=== PATIENT | female | born 1935 | race Caucasian/White ===

== ENCOUNTER → 2017-12-31 07:31 | Outpatient (CLI) | payer MEDICARE, SELFPAY ==
--- NOTE | 2017-12-31 07:33 | DI.MRI.S_ITS ---
PROCEDURE: MR HEAD/BRAIN WO CON INDICATIONS: Memory loss TECHNIQUE: Non-contrast axial T1 spin echo, axial T2 fast spin echo, sagittal and axial FLAIR, coronal T2 fast spin echo, axial gradient echo, axial diffusion and ADC through the brain. COMPARISON: [facility], MR, BRAIN WITHOUT CONTRAST, 05/07/2011, 16:27. FINDINGS: Image quality: Excellent. CSF spaces: Ventricles appear symmetric in size and shape. Basal cisterns are patent. No extra-axial fluid collections. Brain: No intracranial bleeds or mass effects. There is cerebral volume loss for age. There are periventricular and deep white matter chronic small vessel ischemic changes. Brainstem appears normal. Diffusion-weighted images show no acute ischemic insults. No chronic ischemic insults. Normal intravascular flow voids are present. Incidental note is made of relatively prominent, symmetric perivascular spaces within the basal ganglia. Skull and face: Calvarial bone marrow is normal in signal. Orbits are normal. Note is made of bilateral lens replacements. Sinuses: Sinuses and mastoids are clear. IMPRESSION: Study within normal limits for age, with brain parenchymal volume loss and chronic small vessel ischemic change. Dictated by: Jose G Elizabeth M.D. on 12/31/2017 at 9:16 Approved by: Jose G Elizabeth M.D. on 12/31/2017 at 9:18
== END ==
PROVIDERS: Family Provider Family Medicine; PCP Family Medicine; Visit Provider Family Medicine
DX: R41.3 Other amnesia (principal)
CPT/HCPCS: 70551

== ENCOUNTER → 2018-01-01 08:04 | Outpatient (CLI) | payer MEDICARE, SELFPAY ==
[2018-01-01 08:45] LABS: Add Manual Diff / Slide Review NO; Basophils Percent Auto 0.5 % (0-2); Eosinophils Percent Auto 3.4 % (2-4); Hematocrit 38.9 % (36-46); Hemoglobin 13.3 g/dL (12.0-16.0); Lymphocytes Percent Auto 28.6 % (25-40); Mean Corpuscular HGB Conc 34.3 % (30-36); Mean Corpuscular Hemoglobin 31.5 PG (26-34); Mean Corpuscular Volume 91.9 fL (80-100); Neutrophils Absolute Auto 3400 /uL (3000-5900); Neutrophils Percent Auto 58.5 % (50-75); Platelet Count 218 X10^3/uL (150-400); Red Blood Cell Count 4.23 X10^6/uL (4.0-5.2); Red Cell Distribution Width 12.9 % (11.6-14.8); White Blood Cell Count 5.7 X10^3/uL (4.5-11.0)
[2018-01-01 09:17] LABS: Alanine Aminotransferase 28 IU/L (9-52); Albumin 4.3 g/dL (3.5-5.0); Albumin Globulin Ratio 1.3 (1.0-2.8); Alkaline Phosphatase 64 U/L (38-126); Aspartate Aminotransferase 26 IU/L (14-36); Bilirubin Total 0.5 mg/dL (0.2-1.3); Blood Urea Nitrogen 29 mg/dL (7-17); Calcium 9.5 mg/dL (8.4-10.2); Carbon Dioxide 30 mmol/L (22-32); Chloride 100 mmol/L (98-107); Estimated Glomerular Filt Rate 53.2 mL/min (>60); Globulin 3.2 g/dL (1.7-4.1); Glucose 106 mg/dL (80-110); HEMOLYSIS < 15 (0-50); Sodium 141 mmol/L (137-145); Total Protein 7.5 g/dL (6.3-8.2)
[2018-01-01 09:36] LABS: TSH w/ Reflex to FT4 2.68 uIU/mL (0.47-4.68)
[2018-01-01 10:14] LABS: Folate 17.7 ng/mL (2.76-20.0); Vitamin B12 438 pg/mL (239-931)
[2018-01-06 16:00] LABS: Rapid Plasma Reagin NON REACTIVE
== END ==
PROVIDERS: Family Provider Family Medicine; PCP Family Medicine; Visit Provider Family Medicine
DX: R41.81 Age-related cognitive decline (principal)
CPT/HCPCS: 36415; 80053; 82607; 82746; 84443; 85025; 86592

== ENCOUNTER → 2018-11-14 14:53 | Outpatient (CLI) | payer MEDICARE, SELFPAY ==
--- NOTE | 2018-11-14 | DI.MG.S_ITS ---
BILATERAL DIGITAL SCREENING MAMMOGRAM 3D/2D WITH CAD: 11/14/2018 CLINICAL: Routine screening. Comparison is made to exams dated: 09/06/2017 mammogram, 08/21/2016 mammogram, and 08/15/2015 mammogram - [facility]. The tissue of both breasts is predominantly fatty. Current study was also evaluated with a Computer Aided Detection (CAD) system. No significant masses, calcifications, or other findings are seen in either breast. There has been no significant interval change. IMPRESSION: NEGATIVE There is no mammographic evidence of malignancy. A 1 year screening mammogram is recommended. This exam was interpreted at Station ID: [id number]. NOTE: For mammograms, a report in lay terms will be sent to the patient. Approximately 15% of breast malignancies will not be visualized mammographically. In the management of a palpable breast mass, a negative mammogram must not discourage biopsy of a clinically suspicious lesion. Electronically Signed By: Carline sainz/abdulkadir:11/14/2018 16:38:06 letter sent: Normal Exam ACR BI-RADS Category 1: Negative [id number]
== END ==
PROVIDERS: Family Provider Family Medicine; PCP Family Medicine; Visit Provider Family Medicine
DX: Z12.31 Encounter for screening mammogram for malignant neoplasm of breast (principal)
CPT/HCPCS: 77063; 77067

== ENCOUNTER 2020-05-24 12:26 | Emergency (ER) | payer MEDICARE, SELFPAY ==
[2020-05-24 12:34] VITALS: BP 187/91; PULSE 105; RESP 16; TEMP 36.9; O2SAT 98; BMI 21.2
--- NOTE | 2020-05-24 12:36 | ED.HEATRA ---
HPI - Head Injury General Chief complaint: Trauma Stated complaint: HIT HEAD IN THE SHOWER Time Seen by Provider: 05/24/20 12:27 Source: patient and family Mode of arrival: Ambulatory Limitations: no limitations History of Present Illness HPI Narrative: 85-year-old female nonsmoker with noncontributory medical history presents with a family member and a chief complaint of an accidental fall in the shower just prior to arrival. She was reaching into the shower and slipped and hit her head on 1 of the upper right supports to provide stability of the shower. She did not fall and actually hit the ground. She does not take blood thinners, does not drink alcohol. She had no loss of consciousness and has full recall of the event. She is acting at her neurologic baseline per family friend and other family members in the waiting room. She denies nausea or vomiting MD Complaint: head injury Onset (ago): minute(s) Mechanism of Injury: fall Place: home Loss of Consciousness: no Location of injury: occipital Severity: mild Quality: burning Radiation: none Other Injuries: none Associated symptoms: denies other symptoms Related Data Home Medications Medication Instructions Recorded Confirmed ASCORBIC ACID (VITAMIN C) 500 mg PO QDAY #0 09/10/12 05/21/18 CA PANTOTHENATE/FOLIC ACID/VIT 1 tab PO QDAY #0 09/10/12 05/21/18 (MULTIVITAMIN) VITAMIN D (Vitamin D3) 1,000 unit PO QDAY #0 09/10/12 05/21/18 aspirin 325 mg PO QDAY #0 09/10/12 05/21/18 Previous Rx's Medication Instructions Recorded lisinopril 20 1 tab PO BID #180 tab 01/11/20 mg-hydrochlorothiazide 12.5 mg tablet Allergies Allergy/AdvReac Type Severity Reaction Status Date / Time acetaminophen [From ULTRACET] Allergy Mild vomiting Verified 05/21/18 13:29 Estrogens [ESTROGENS] Allergy Mild MIGRAINES Verified 05/21/18 13:29 nilson [NILSON] Allergy Mild rash Verified 05/21/18 13:29 celecoxib [CELECOXIB] Allergy Unknown Verified 05/21/18 13:29 cephalexin [CEPHALEXIN] Allergy Unknown unk Verified 05/21/18 13:29 codeine [CODEINE] Allergy Unknown Verified 05/21/18 13:29 doxycycline [DOXYCYCLINE] Allergy Unknown Verified 05/21/18 13:29 estradiol [ESTRADIOL] Allergy Unknown Verified 05/21/18 13:29 estrone [ESTRONE] Allergy Unknown Verified 05/21/18 13:29 ibuprofen [IBUPROFEN] Allergy Unknown Verified 05/21/18 13:29 oxycodone [OXYCODONE] Allergy Unknown Verified 05/21/18 13:29 propoxyphene [PROPOXYPHENE] Allergy Unknown Verified 05/21/18 13:29 sulfacetamide Allergy Unknown Verified 05/21/18 13:29 [From SULFAMIDE] sulfamethoxazole Allergy Unknown Verified 05/21/18 13:29 [SULFAMETHOXAZOLE] Tetracyclic Antidepressants Allergy Unknown Verified 05/21/18 13:29 [TETRACYCLIC ANTIDEPRESSANTS] Tetracyclines [TETRACYCLINES] Allergy Unknown Verified 05/21/18 13:29 tramadol [TRAMADOL] Allergy Unknown Verified 05/21/18 13:29 trimethoprim [TRIMETHOPRIM] Allergy Unknown Verified 05/21/18 13:29 aspercream Allergy Mild rash Uncoded 05/21/18 13:29 hibiscus Allergy Mild rash Uncoded 05/21/18 13:29 novocaine Allergy Mild nause Uncoded 05/21/18 13:29 CASHEWS Allergy Unknown Uncoded 05/21/18 13:29 Review of Systems Constitutional Constitutional: Denies chills, Denies fatigue, Denies fever(s), Denies frequent falls, Denies lethargy and Denies weakness Eyes Eyes: Denies change in vision, Denies eye discharge, Denies irritation and Denies loss of vision ENT Ears, Nose, Mouth, and Throat: Denies change in voice, Denies dizziness, Denies neck pain, Denies sore throat and Denies throat swelling Cardiovascular Cardiovascular: Denies chest pain, Denies irregular heart rhythm, Denies lightheadedness, Denies palpitations, Denies dyspnea, Denies dyspnea on exertion and Denies orthopnea Respiratory Respiratory: Denies cough, Denies dyspnea, Denies dyspnea on exertion and Denies wheezing Gastrointestinal Gastrointestinal: Denies abdominal pain, Denies change in bowel habits, Denies diarrhea, Denies nausea and Denies vomiting Musculoskeletal Musculoskeletal: Denies neck pain and Denies numbness Integumentary/Breasts Skin/Breast: Denies pruritus, Denies erythema, Denies rash, Reports unusual bruising and Denies wounds Neurologic Neurologic: Denies behavioral changes, Denies confusion, Denies dizziness, Denies frequent falls, Denies loss of vision, Denies numbness and Denies weakness Psychiatric Psychiatric: Denies anxiety, Denies behavioral changes, Denies confusion, Denies depression, Denies homicidal ideation and Denies suicidal ideation Endocrine Endocrine: Denies fatigue, Denies flushing and Denies palpitations Hematologic/Lymphatic Hematologic/Lymphatic: Denies easy bruising Allergic/Immunologic Allergic/Immunologic: Denies urticaria, Denies throat swelling and Denies wheezing Patient History Medical History Hypertension (Chronic 06/30/14) Surgical History History of hip replacement (10/12/03) Status post hysterectomy Social History marital status: Smoking Status: Never smoker alcohol intake: current (1-3 A WEEK ) substance use type: does not use Smoking Status: Never smoker Exam Narrative Exam Narrative: GENERAL: [85] year old patient appears stated age. Well-nourished, well-developed patient, in mild distress. GCS 15 HEAD: Hematoma on occiputs, no evidence of depressed skull fracture. Normocephalic. EYES: Pupils equal round and reactive. Extraocular motions intact. No scleral icterus. No injection or drainage. ENT: Nose without bleeding, purulent drainage. Throat without erythema, tonsillar hypertrophy or exudate. Airway patent. NECK: Trachea midline. Non tender CARDIOVASCULAR: Regular rate and rhythm without murmurs, gallops, or rubs. RESPIRATORY: Clear to auscultation. Breath sounds equal bilaterally. No wheezes, rales, or rhonchi. GASTROINTESTINAL: Abdomen soft, non-tender, nondistended. EXTREMITIES: No edema or joint tenderness. BACK: Nontender without deformity or crepitance. No flank tenderness. NEURO: AOx3. SKIN: No rash or erythema of visible areas Initial Vital Signs Initial Vital Signs: Vital Signs Temperature 98.5 F 05/24/20 12:34 Pulse Rate 105 H 05/24/20 12:34 Respiratory Rate 16 05/24/20 12:34 Blood Pressure 187/91 H 05/24/20 12:34 Pulse Oximetry 98 05/24/20 12:34 Course Orders Ordered: ED Orders 05/24/20 12:36 CT head/brain wo con Stat Vital Signs Vital signs: Vital Signs - 8 hr 05/24/20 12:34 Temperature 98.5 F Pulse Rate 105 H Respiratory Rate 16 Blood Pressure 187/91 H Pulse Oximetry 98 MDM - Head Injury Imaging Data CT scan - head: Radiologist's Impression: Vesta Dickinson 85 F [address] [address] [address] Scan Report Signed Patient: Vesta Dickinson EMR#: [id number] : [id number]:[id number] Age/Sex: 85 / FDate of Service: 05/24/20 Loc: ED Accession Number: [id number] Procedure: CT head/brain wo con Ordering Provider: Maxwell Celaya D.O. PROCEDURE: CT HEAD/BRAIN WO CON INDICATIONS: fall with head injury, occipital hematoma TECHNIQUE: Noncontrast 4.5 mm thick angled axial sections acquired from the foramen magnum to the vertex, with coronal and sagittal reformats. For radiation dose reduction, the following was used: automated exposure control, adjustment of mA and/or kV according to patient size. COMPARISON: [facility], MR, MR HEAD/BRAIN WO CON, 12/31/2017, 7:47. FINDINGS: Image quality: Excellent. CSF spaces: Basal cisterns are patent. No extra-axial fluid collections. Ventricles are normal in size and shape. Brain: No midline shift. No intracranial masses or hemorrhage. No area of hypodensity in a large vascular distribution to suggest acute infarction. Periventricular hypodensity consistent with chronic microvascular ischemic change. Distal intracranial ICA atherosclerotic calcifications. Age-related parenchymal loss. Skull and face: Small left parietal scalp hematoma. No underlying fracture. Sinuses: Mucosal thickening in the right sphenoid sinus. Paranasal sinuses and mastoids are otherwise clear. IMPRESSION: 1. No acute intracranial hemorrhage. 2. No acute infarct demonstrated. 3. Chronic microvascular ischemic disease and age-related parenchymal loss. 4. Small left parietal scalp hematoma. Dictated by: John Garza M.D. on 05/24/2020 at 12:53 Approved by: John Garza M.D. on 05/24/2020 at 12:57 Discharge Plan Departure Patient Disposition: Home Clinical Impression: Hematoma of scalp Qualifiers: Encounter type: initial encounter Qualified Code(s): S00.03XA - Contusion of scalp, initial encounter Discharge Date/Time: 05/24/20 13:10 Instructions: DI for Hematoma (Bruise) Activity Restrictions/Additional Instructions: *You have been diagnosed with [fall with scalp hematoma. ] *What to do: *Take medications as directed *Follow up with your primary care provider in 2-3 days, call for an appointment. Let them know you were seen in the Emergency Department and that we ask that you be seen in follow up *Return to ER if you should have any new, worsening or concerning symptoms, such as [ vomiting, feeling unsteady, numbness, tingling or weakness of your extremities or other bothersome symptoms] Prescriptions: No Action ASCORBIC ACID (VITAMIN C) 500 mg PO QDAY Qty: 0 RF: 0 VITAMIN D (Vitamin D3) 1,000 unit PO QDAY Qty: 0 RF: 0 aspirin 325 MG tablet 325 mg PO QDAY Qty: 0 RF: 0 CA PANTOTHENATE/FOLIC ACID/VIT (MULTIVITAMIN) 1 tab PO QDAY Qty: 0 RF: 0 lisinopril-hydrochlorothiazide 20-12.5 mg tablet 1 tab PO BID Qty: 180 RF: 0 Referrals: Bello Núñez MD [Primary Care Provider] -
== END 2020-05-24 13:10 | disposition home or self-care (01) ==
PROVIDERS: Emergency Provider Emergency Medicine; Family Provider Family Medicine; PCP Family Medicine
DX: S00.03XA Contusion of scalp, initial encounter (principal); W18.2XXA Fall in (into) shower or empty bathtub, initial encounter
CPT/HCPCS: 70450; 99284

== ENCOUNTER → 2020-11-24 14:19 | Outpatient (CLI) | payer MEDICARE, SELFPAY ==
[2020-11-24 16:46] LABS: Add Manual Diff / Slide Review NO; Basophils Absolute Auto 0 /uL (0-100); Basophils Percent Auto 0.6 % (0-2); Eosinophils Absolute Auto 200 /uL (0-450); Hematocrit 43.3 % (36-46); Hemoglobin 14.4 g/dL (12.0-16.0); Lymphocytes Absolute Auto 1800 /uL (1100-4500); Lymphocytes Percent Auto 23.8 % (25-40); Mean Corpuscular HGB Conc 33.4 % (30-36); Mean Corpuscular Volume 92.9 fL (80-100); Monocytes Absolute Auto 600 /uL (0-900); Monocytes Percent Auto 7.9 % (3-14); Neutrophils Absolute Auto 5000 /uL (1500-7000); Neutrophils Percent Auto 64.7 % (50-75); Platelet Count 251 X10^3/uL (150-400); Red Blood Cell Count 4.66 X10^6/uL (4.0-5.2); Red Cell Distribution Width 13.6 % (11.6-14.8); White Blood Cell Count 7.7 X10^3/uL (4.5-11.0)
[2020-11-24 16:53] LABS: Alanine Aminotransferase 25 IU/L (<35); Albumin 4.5 g/dL (3.5-5.0); Albumin Globulin Ratio 1.3 (1.0-2.8); Alkaline Phosphatase 72 U/L (38-126); Aspartate Aminotransferase 29 IU/L (14-36); BUN Creatinine Ratio 31.8 (6-22); Bilirubin Total 0.4 mg/dL (0.2-1.3); Blood Urea Nitrogen 34 mg/dL (7-17); Calcium 10.1 mg/dL (8.4-10.2); Carbon Dioxide 27 mmol/L (22-32); Chloride 101 mmol/L (98-107); Estimated Glomerular Filt Rate 48.9 mL/min (>60); Globulin 3.4 g/dL (1.7-4.1); Glucose 125 mg/dL (80-110); HEMOLYSIS < 15 (0-50); Potassium 3.9 mmol/L (3.4-5.1); Sodium 138 mmol/L (137-145); Total Protein 7.9 g/dL (6.3-8.2)
[2020-11-24 18:19] LABS: TSH w/ Reflex to FT4 2.18 uIU/mL (0.47-4.68)
[2020-11-24 18:31] LABS: Vitamin B12 989 pg/mL (239-931)
== END ==
PROVIDERS: Family Provider Family Medicine; PCP Family Medicine; Referring Provider Family Medicine; Visit Provider Family Medicine
DX: I10 Essential (primary) hypertension (principal); R41.81 Age-related cognitive decline
CPT/HCPCS: 36415; 80053; 82607; 84443; 85025

== ENCOUNTER → 2022-12-10 07:20 | Outpatient (CLI) | payer MEDICARE, SELFPAY ==
[2022-12-10 08:49] LABS: Hematocrit 38.4 % (36-46); Hemoglobin 13.1 g/dL (12.0-16.0); Mean Corpuscular HGB Conc 34.2 % (30-36); Mean Corpuscular Hemoglobin 31.7 PG (26-34); Mean Corpuscular Volume 92.8 fL (80-100); Platelet Count 206 X10^3/uL (150-400); Red Blood Cell Count 4.14 X10^6/uL (4.0-5.2); Red Cell Distribution Width 12.9 % (11.6-14.8); White Blood Cell Count 7.1 X10^3/uL (4.5-11.0)
[2022-12-10 08:59] LABS: Alanine Aminotransferase 24 IU/L (<35); Albumin 4.3 g/dL (3.5-5.0); Albumin Globulin Ratio 1.4 (1.0-2.8); Alkaline Phosphatase 85 U/L (38-126); Aspartate Aminotransferase 28 IU/L (14-36); BUN Creatinine Ratio 34.5 (6-22); Bilirubin Total 0.3 mg/dL (0.2-1.3); Blood Urea Nitrogen 38 mg/dL (7-17); Calcium 9.3 mg/dL (8.4-10.2); Carbon Dioxide 26 mmol/L (22-32); Chloride 104 mmol/L (98-107); Cholesterol 229 mg/dL (140-199); Estimated Glomerular Filt Rate 49 mL/min (>60); Globulin 3.1 g/dL (1.7-4.1); Glucose 114 mg/dL (80-110); HDL Cholesterol 62 mg/dL (40-60); HEMOLYSIS < 15 (0-50); LDL Cholesterol Calculated 146 mg/dL (<100); Potassium 3.9 mmol/L (3.4-5.1); Sodium 139 mmol/L (137-145); Total Protein 7.4 g/dL (6.3-8.2); Triglycerides 105 mg/dL (35-150)
[2022-12-10 09:45] LABS: Vitamin B12 > 1000 pg/mL (239-931)
[2022-12-10 09:48] LABS: TSH w/ Reflex to FT4 3.51 uIU/mL (0.47-4.68)
== END ==
PROVIDERS: Family Provider Family Medicine; PCP Internal Medicine; Referring Provider Internal Medicine; Visit Provider Internal Medicine
DX: E53.8 Deficiency of other specified B group vitamins (principal); I10 Essential (primary) hypertension; G30.9 Alzheimer's disease, unspecified; F02.80 Dementia in other diseases classified elsewhere, unspecified severity, without behavioral disturbance, psychotic disturbance, mood disturbance, and anxiety
CPT/HCPCS: 36415; 80053; 80061; 82607; 84443; 85027

== ENCOUNTER → 2023-07-12 18:45 | Outpatient (CLI) | payer MEDICARE, SELFPAY | PROVIDERS: Family Provider Family Medicine; PCP Internal Medicine; Visit Provider Physician Assistant | DX: R31.9 Hematuria, unspecified (principal) | CPT/HCPCS: 87077; 87086; 87186 ==

== ENCOUNTER → 2023-07-16 13:10 | Outpatient (CLI) | payer MEDICARE, SELFPAY | PROVIDERS: Family Provider Family Medicine; PCP Internal Medicine; Visit Provider Physician Assistant | DX: R30.0 Dysuria (principal) | CPT/HCPCS: 87086 ==

== ENCOUNTER → 2023-07-16 13:11 | Outpatient (CLI) | payer MEDICARE, SELFPAY ==
[2023-07-16 14:19] LABS: Add Manual Diff / Slide Review NO; Basophils Absolute Auto 0 /uL (0-100); Basophils Percent Auto 0.3 % (0-2); Eosinophils Absolute Auto 100 /uL (0-450); Eosinophils Percent Auto 1.3 % (2-4); Hematocrit 40.7 % (36-46); Hemoglobin 13.8 g/dL (12.0-16.0); Lymphocytes Absolute Auto 1900 /uL (1100-4500); Mean Corpuscular HGB Conc 33.9 % (30-36); Mean Corpuscular Hemoglobin 31.1 PG (26-34); Mean Corpuscular Volume 91.7 fL (80-100); Monocytes Absolute Auto 600 /uL (0-900); Monocytes Percent Auto 7.5 % (3-14); Neutrophils Absolute Auto 6000 /uL (1500-7000); Neutrophils Percent Auto 68.9 % (50-75); Platelet Count 268 X10^3/uL (150-400); Red Blood Cell Count 4.43 X10^6/uL (4.0-5.2); White Blood Cell Count 8.7 X10^3/uL (4.5-11.0)
[2023-07-16 14:34] LABS: Alanine Aminotransferase 21 IU/L (<35); Albumin 4.5 g/dL (3.5-5.0); Albumin Globulin Ratio 1.3 (1.0-2.8); Alkaline Phosphatase 71 U/L (38-126); Aspartate Aminotransferase 26 IU/L (14-36); BUN Creatinine Ratio 26.6 (6-22); Bilirubin Total 0.7 mg/dL (0.2-1.3); Blood Urea Nitrogen 37 mg/dL (7-17); Calcium 11.7 mg/dL (8.4-10.2); Carbon Dioxide 27 mmol/L (22-32); Chloride 98 mmol/L (98-107); Estimated Glomerular Filt Rate 37 mL/min (>60); Globulin 3.6 g/dL (1.7-4.1); Glucose 93 mg/dL (80-110); HEMOLYSIS < 15 (0-50); Potassium 4.3 mmol/L (3.4-5.1); Sodium 135 mmol/L (137-145); Total Protein 8.1 g/dL (6.3-8.2)
== END ==
PROVIDERS: Family Provider Family Medicine; PCP Internal Medicine; Referring Provider Physician Assistant; Visit Provider Physician Assistant
DX: N39.0 Urinary tract infection, site not specified (principal); R30.0 Dysuria
CPT/HCPCS: 36415; 80053; 85025; 87086

== ENCOUNTER 2023-07-30 18:47 | Emergency (ER) | payer MEDICARE, SELFPAY ==
[2023-07-30] VITALS (7 sets, daily range): BP systolic 130–171; BP diastolic 69–78; PULSE 74–94; RESP 13–23; TEMP 36.4; O2SAT 97–99; BMI 22.1
--- NOTE | 2023-07-30 19:16 | ED.WEAKNESS ---
HPI - Weakness General Chief complaint: Weakness Stated complaint: weakness, dizziness Time Seen by Provider: 07/30/23 19:00 Source: patient and family Mode of arrival: Ambulatory History of Present Illness HPI Narrative: This is an 88-year-old female with a history of hypertension and dementia who arrives by private vehicle accompanied by her daughter. Primary historian is the patient daughter contribute. Reportedly over the last week she has had progressive weakness. Today she feels fatigued weak and dizzy. She has not had nausea or vomiting no changes in bowel habits no urinary symptoms no shortness of breath no chest pain abdominal pain no fevers. A couple of weeks ago, she was treated with Macrobid and another antibiotic for urinary tract infection the initial urine culture from that event grew out pansensitive E coli, subsequent urine culture was no growth. Her primary care provider is Dr. Charles Miranda, she takes medications for dementia and hypertension and her medications have not changed recently. Related Data Home Medications Medication Instructions Recorded Confirmed antiarthritic combination no.2 900 mg PO DAILY 11/24/20 07/16/23 mg tablet (glucosamine-chondroitin) aspirin 325 mg tablet 325 mg PO ONCE PRN pain #0 tabs 11/24/20 07/16/23 calcium carbonate 500 mg calcium 500 mg PO DAILY 11/24/20 07/16/23 (1,250 mg) tablet (Calcium 500) calcium 1 tab PO DAILY 11/24/20 07/16/23 [id number] 250 mg-40 mg-125 unit tablet (Citracal-D3 Plus Magnesium) cyanocobalamin (vitamin B-12) 1,000 mcg PO DAILY 11/24/20 07/16/23 1,000 mcg capsule multivitamin 1 tab PO DAILY 11/24/20 07/16/23 ascorbate calcium (vitamin C) 500 500 mg PO DAILY 12/07/22 07/16/23 mg tablet cholecalciferol (vitamin D3) 25 25 mcg PO DAILY 12/07/22 07/16/23 mcg (1,000 unit) capsule Previous Rx's Medication Instructions Recorded lisinopril 20 1 tab PO BID #180 tabs 04/23/23 mg-hydrochlorothiazide 12.5 mg tablet memantine 5 mg tablet 5 mg PO BID #180 tabs 04/23/23 cefdinir 300 mg capsule 300 mg PO BID #10 caps 07/16/23 Allergies Allergy/AdvReac Type Severity Reaction Status Date / Time acetaminophen [From ULTRACET] Allergy Mild vomiting Verified 07/16/23 12:41 Estrogens [ESTROGENS] Allergy Mild MIGRAINES Verified 07/16/23 12:41 nilson [NILSON] Allergy Mild rash Verified 07/16/23 12:41 celecoxib [CELECOXIB] Allergy Unknown Verified 07/16/23 12:41 cephalexin [CEPHALEXIN] Allergy Unknown unk Verified 07/16/23 12:41 codeine [CODEINE] Allergy Unknown Verified 07/16/23 12:41 doxycycline [DOXYCYCLINE] Allergy Unknown Verified 07/16/23 12:41 estradiol [ESTRADIOL] Allergy Unknown Verified 07/16/23 12:41 estrone [ESTRONE] Allergy Unknown Verified 07/16/23 12:41 ibuprofen [IBUPROFEN] Allergy Unknown Verified 07/16/23 12:41 oxycodone [OXYCODONE] Allergy Unknown Verified 07/16/23 12:41 propoxyphene [PROPOXYPHENE] Allergy Unknown Verified 07/16/23 12:41 sulfacetamide Allergy Unknown Verified 07/16/23 12:41 [From SULFAMIDE] sulfamethoxazole Allergy Unknown Verified 07/16/23 12:41 [SULFAMETHOXAZOLE] Tetracyclic Antidepressants Allergy Unknown Verified 07/16/23 12:41 [TETRACYCLIC ANTIDEPRESSANTS] Tetracyclines [TETRACYCLINES] Allergy Unknown Verified 07/16/23 12:41 tramadol [TRAMADOL] Allergy Unknown Verified 07/16/23 12:41 trimethoprim [TRIMETHOPRIM] Allergy Unknown Verified 07/16/23 12:41 donepezil AdvReac Mild Insomnia Verified 07/16/23 12:41 aspercream Allergy Mild rash Uncoded 07/16/23 12:41 hibiscus Allergy Mild rash Uncoded 07/16/23 12:41 novocaine Allergy Mild nause Uncoded 07/16/23 12:41 CASHEWS Allergy Unknown Uncoded 07/16/23 12:41 Patient History Medical History Alzheimer's dementia Do not resuscitate Essential hypertension Headache Hearing loss Surgical History Anesthesia History of cataract removal with insertion of prosthetic lens (~2016) History of hip replacement (10/12/03) Status post hysterectomy (~1998) Family History Father History of heart disease Mother History of heart disease Brother History of heart disease Sister History of heart disease Hypertension History of kidney disease Social History marital status: details: (Laurent), lives with daughter (Devi), dtr Paz ([place], [place]) Smoking Status: Never smoker alcohol intake: current (1-3 A WEEK ) substance use type: does not use Smoking Status: Never smoker alcohol intake frequency: 0-2 drinks per day Substance Use Type: does not use Exam Initial Vital Signs Initial Vital Signs: Vital Signs Temperature 97.5 F L 07/30/23 18:50 Pulse Rate 93 H 07/30/23 18:50 Respiratory Rate 18 07/30/23 18:50 Blood Pressure 130/78 07/30/23 18:50 Pulse Oximetry 99 07/30/23 18:50 Oxygen Delivery Method Room Air 07/30/23 18:50 Const General: cooperative and No acute distress HENMT Head: normocephalic and atraumatic Eyes Other: Pupils are equal round and reactive extraocular movements are intact conjunctivae are normal Neck Other: Supple without adenopathy Resp Effort & Inspection: normal respiratory effort and able to speak in complete sentences Auscultation: clear to auscultation bilaterally Cardio Other: Regular rhythm rate no murmur rub or gallop GI Other: Normal bowel sounds soft nontender without organomegaly Back/Spine/Pelvis Other: No CVAT good active range of motion Skin Other: Warm and dry Neuro Other: Alert and cooperative, moving all 4 extremities spontaneously and equally there has no facial droop or asymmetry extraocular movements are intact without nystagmus Psych Appearance: grossly normal Course Course Course Narrative: 88-year-old female with generalized weakness has been progressive over a fairly extended period of time and not acutely changed. It is not associated with fevers shortness of breath or other acute symptoms. Workup does not suggest infection, major metabolic disturbance other some mild dehydration, iatrogenic cause or acute coronary syndrome. She was a bit dehydrated I gave her a L of saline recommended she follow up with her primary care provider soon Orders Ordered: ED Orders 07/30/23 20:10 Urine Culture Stat Urine Microscopic Stat Discontinued Medications Sodium Chloride (Normal Saline 0.9%) 1,000 mls @ 1,000 mls/hr IV BOLUS ONE Stop: 07/30/23 20:54 Last Admin: 07/30/23 19:59 Dose: 1,000 mls/hr Documented By: TERRIE Vital Signs Vital signs: Vital Signs - 8 hr 07/30/23 20:30 Pulse Rate 74 Respiratory Rate 23 Pulse Oximetry 99 MDM - Weakness Lab Data 07/30/23 19:00 07/30/23 19:00 Labs: Lab Results 07/30/23 07/30/23 Range/Units 19:00 20:10 WBC 11.2 H (4.5-11.0) X10^3/uL RBC 4.36 (4.0-5.2) X10^6/uL Hgb 13.5 (12.0-16.0) g/dL Hct 39.9 (36-46) % MCV 91.5 (80-100) fL MCH 30.9 (26-34) PG MCHC 33.8 (30-36) % RDW 13.1 (11.6-14.8) % Plt Count 293 (150-400) X10^3/uL Neut % (Auto) 67.1 (50-75) % Lymph % (Auto) 23.3 L (25-40) % [place] % (Auto) 7.2 (3-14) % Eos % (Auto) 1.5 L (2-4) % Baso % (Auto) 0.9 (0-2) % Neut # (Auto) 7600 H (7980-0274) /uL Lymph # (Auto) 2600 (1275-1554) /uL [place] # (Auto) 800 (0-900) /uL Eos # (Auto) 200 (0-450) /uL Baso # (Auto) 100 (0-100) /uL Sodium 131 L (137-145) mmol/L Potassium 3.9 (3.4-5.1) mmol/L Chloride 96 L (98-107) mmol/L Carbon Dioxide 24 (22-32) mmol/L BUN 47 H (7-17) mg/dL Creatinine 1.47 H (0.52-1.04) mg/dL Estimated GFR 34 L (>60) mL/min BUN/Creatinine Ratio 32.0 H (6-22) Glucose 142 H (80-110) mg/dL Calcium 9.8 (8.4-10.2) mg/dL Total Bilirubin 0.7 (0.2-1.3) mg/dL AST TNP ALT 23 (<35) IU/L Alkaline Phosphatase 56 (38-126) U/L Total Protein 8.1 (6.3-8.2) g/dL Albumin 4.6 (3.5-5.0) g/dL Globulin 3.5 (1.7-4.1) g/dL Albumin/Globulin Ratio 1.3 (1.0-2.8) Urine RBC 0-1/hpf (0-5/HPF) Urine WBC 1-5/hpf (0-5/HPF) Ur Squamous Epith Cells 1-5 /hpf (0-5/HPF) Urine Bacteria Few (2-10) H (None) Urine Dip Bedside Urine Glucose Negative Bedside Urine Bilirubin - Negative Bedside Urine Ketone - Negative Bedside Urine Occult Blood - Negative Bedside Urine Protein - Negative Bedside Urine Urobilinogen - Negative Bedside Urine Nitrite - Negative Bedside Urine Leukocytes +/- [address] scan - head: My Impression: Independent review of CT head no acute findings Radiologist Impression: IMPRESSION: 1. No acute intracranial hemorrhage. 2. No acute infarct demonstrated. 3. Chronic microvascular ischemic disease and age-related parenchymal loss. 4. Small left parietal scalp hematoma. Dictated by: John Garza M.D. on 05/24/2020 at 12:53 Approved by: John Garza M.D. on 05/24/2020 at 12:57 ECG Data Interpretation: ECG shows normal sinus rhythm at 95 intervals are normal, there are Q-waves in leads 3 and AVF indicating a probable old inferior [place], no acute changes and no old EKG available for comparison Discharge Plan Departure Patient Disposition: Home Clinical Impression: Generalized weakness, Dehydration Activity Restrictions/Additional Instructions: Emergency department evaluation today is reassuring. No acute problem requiring hospitalization is identified tonight. It does appear that you are somewhat dehydrated, we gave a L of fluids and I recommend you try to get more fluids at home. Follow up soon with your primary care provider and continue previous home medications. Although we have made every effort to ensure that you are safe for discharge, if your symptoms are getting worse, or if you are having other acute symptoms such as chest pain shortness of breath high fevers, abdominal pain or uncontrolled vomiting recheck in the emergency department. Prescriptions: No Action Citracal-D3 Plus Magnesium 250-40-125 mg-mg-unit tablet 1 tab PO DAILY calcium carbonate [Calcium 500] 500 mg calcium (1,250 mg) tablet 500 mg PO DAILY multivitamin Tablet 1 tab PO DAILY glucosamine-chondroitin 900 mg tablet PO DAILY cyanocobalamin (vitamin B-12) 1,000 mcg capsule 1,000 mcg PO DAILY cefdinir 300 mg capsule 300 mg PO BID Qty: 10 0RF aspirin 325 mg tablet 325 mg PO ONCE PRN (Reason: pain) Qty: 0 ascorbate calcium (vitamin C) 500 mg tablet 500 mg PO DAILY cholecalciferol (vitamin D3) 25 mcg (1,000 unit) capsule 25 mcg PO DAILY memantine 5 mg tablet 5 mg PO BID Qty: 180 3RF lisinopril-hydrochlorothiazide 20-12.5 mg tablet 1 tab PO BID Qty: 180 3RF Referrals: Charles Miranda MD [Primary Care Provider] - Stand Alone Forms: Patient Portal/API
[2023-07-30 19:18] LABS: Add Manual Diff / Slide Review NO; Basophils Absolute Auto 100 /uL (0-100); Basophils Percent Auto 0.9 % (0-2); Eosinophils Absolute Auto 200 /uL (0-450); Eosinophils Percent Auto 1.5 % (2-4); Hematocrit 39.9 % (36-46); Hemoglobin 13.5 g/dL (12.0-16.0); Lymphocytes Absolute Auto 2600 /uL (1100-4500); Lymphocytes Percent Auto 23.3 % (25-40); Mean Corpuscular HGB Conc 33.8 % (30-36); Mean Corpuscular Hemoglobin 30.9 PG (26-34); Mean Corpuscular Volume 91.5 fL (80-100); Monocytes Absolute Auto 800 /uL (0-900); Monocytes Percent Auto 7.2 % (3-14); Neutrophils Absolute Auto 7600 /uL (1500-7000); Neutrophils Percent Auto 67.1 % (50-75); Platelet Count 293 X10^3/uL (150-400); Red Blood Cell Count 4.36 X10^6/uL (4.0-5.2); Red Cell Distribution Width 13.1 % (11.6-14.8); White Blood Cell Count 11.2 X10^3/uL (4.5-11.0)
[2023-07-30 19:29] LABS: Alanine Aminotransferase 23 IU/L (<35); Albumin 4.6 g/dL (3.5-5.0); Albumin Globulin Ratio 1.3 (1.0-2.8); Alkaline Phosphatase 56 U/L (38-126); Bilirubin Total 0.7 mg/dL (0.2-1.3); Blood Urea Nitrogen 47 mg/dL (7-17); Calcium 9.8 mg/dL (8.4-10.2); Carbon Dioxide 24 mmol/L (22-32); Chloride 96 mmol/L (98-107); Estimated Glomerular Filt Rate 34 mL/min (>60); Globulin 3.5 g/dL (1.7-4.1); Glucose 142 mg/dL (80-110); Potassium 3.9 mmol/L (3.4-5.1); Sodium 131 mmol/L (137-145); Total Protein 8.1 g/dL (6.3-8.2)
[2023-07-30] MEDS: SODIUM CHLORIDE 0.9% 1,000 ML 1000 ML IV (19:59)
[2023-07-30 20:24] LABS: Bacteria Urine Few (2-10); RBC Urine 0-1/HPF (0-5/HPF); Squamous Epithelial Cell Urine 1-5 /HPF (0-5/HPF); WBC Urine 1-5/HPF (0-5/HPF)
[2023-08-02 15:55] LABS: Aspartate Aminotransferase 35 IU/L (14-36); HEMOLYSIS 83 (0-50)
--- NOTE | 2023-09-17 11:55 | PC.NURSE ---
late entry- patients IV and IV fluids were discontinued prior to discharge at 2100 per RN
== END 2023-07-30 21:08 | disposition home or self-care (01) ==
PROVIDERS: Emergency Provider Emergency Medicine; Family Provider Family Medicine; PCP Internal Medicine
DX: R53.1 Weakness (principal); E86.0 Dehydration
CPT/HCPCS: 36415; 80053; 81003; 81015; 85025; 87086; 93005; 96360; 96361; 99284

== ENCOUNTER → 2023-12-21 09:44 | Outpatient (CLI) | payer MEDICARE, SELFPAY ==
[2023-12-21 10:59] LABS: Hematocrit 38.8 % (36-46); Hemoglobin 13.1 g/dL (12.0-16.0); Mean Corpuscular HGB Conc 33.8 % (30-36); Mean Corpuscular Hemoglobin 31.9 PG (26-34); Mean Corpuscular Volume 94.3 fL (80-100); Platelet Count 209 X10^3/uL (150-400); Red Blood Cell Count 4.11 X10^6/uL (4.0-5.2); Red Cell Distribution Width 13.8 % (11.6-14.8); White Blood Cell Count 7.8 X10^3/uL (4.5-11.0)
[2023-12-21 11:09] LABS: BUN Creatinine Ratio 23.7 (6-22); Blood Urea Nitrogen 32 mg/dL (7-17); Calcium 10.1 mg/dL (8.4-10.2); Carbon Dioxide 28 mmol/L (22-32); Chloride 106 mmol/L (98-107); Estimated Glomerular Filt Rate 38 mL/min (>60); Glucose 125 mg/dL (80-110); HEMOLYSIS < 15 (0-50); Sodium 142 mmol/L (137-145)
== END ==
PROVIDERS: Family Provider Family Medicine; PCP Internal Medicine; Referring Provider Internal Medicine; Visit Provider Internal Medicine
DX: I12.9 Hypertensive chronic kidney disease with stage 1 through stage 4 chronic kidney disease, or unspecified chronic kidney disease (principal); N18.32 Chronic kidney disease, stage 3b
CPT/HCPCS: 36415; 80048; 85027

== ENCOUNTER → 2025-04-06 09:48 | Outpatient (CLI) | payer MEDICARE, SELFPAY ==
[2025-04-06 10:57] LABS: Hematocrit 41.8 % (36-46); Hemoglobin 14.1 g/dL (12.0-16.0); Mean Corpuscular HGB Conc 33.6 % (30-36); Mean Corpuscular Hemoglobin 30.8 PG (26-34); Mean Corpuscular Volume 91.4 fL (80-100); Platelet Count 264 X10^3/uL (150-400)
[2025-04-06 11:16] LABS: Blood Urea Nitrogen 26 mg/dL (7-17); Calcium 10.2 mg/dL (8.4-10.2); Carbon Dioxide 27 mmol/L (22-32); Chloride 95 mmol/L (98-107); Estimated Glomerular Filt Rate 51 mL/min (>60); Glucose 112 mg/dL (70-99); HEMOLYSIS < 15 (0-50); Potassium 4.3 mmol/L (3.4-5.1); Sodium 133 mmol/L (137-145)
== END ==
PROVIDERS: Family Provider Family Medicine; PCP Internal Medicine; Referring Provider Internal Medicine; Visit Provider Internal Medicine
DX: N18.32 Chronic kidney disease, stage 3b (principal)
CPT/HCPCS: 36415; 80048; 85027